=== PATIENT | male | born 1945 | race Caucasian/White ===

== ENCOUNTER → 2017-10-08 | Outpatient (CLI) | payer OTHER, MEDICARE ==
[~2017-10-08] MED LIST: AEC81 PO; AMLO5TAB2 PO; ASPI-555 PO; ATOR10 PO; ATOR10TA69 PO; BISO10TA PO; BISO5TAB2 PO; CLOP75TA14 PO; FLUT16H NS; GINK120C PO; GUAI200T5 PO; HYDR12.54 PO; LOSA100T29 PO; LOSA25TA21 PO; MELOTONIN PO; OMEG100014 PO; OMEP20CA10 PO; OXYB5TAB10 PO; PANT40TA25 PO; POTA-79 PO; TURM538C PO; UBID30CA11 PO; VITA1CAP PO
== END | disposition home or self-care (01) ==
LOC: RAH 10:00
PROVIDERS: ATTEND Internal Medicine Cardiovascular Disease
DX: I72.8 Aneurysm of other specified arteries (principal)
CPT/HCPCS: 76882

== ENCOUNTER 2017-10-23 05:30 | Observation (INO) | payer OTHER, MEDICARE ==
[2017-10-22 11:20] VITALS: BP 116/64
[2017-10-22 11:56] LABS: EOSINOPHILS % (AUTO) 3.4 % (0.0-8.0); HEMATOCRIT 39.9 % (42-54); MEAN CORPUSCULAR HEMOGLOBIN 30.4 pg (27.0-33.0); MEAN CORPUSCULAR HGB CONC 34.1 g/dL (32.0-36.0); MEAN CORPUSCULAR VOLUME 89.2 fL (79-99); MONOCYTES % (AUTO) 10.7 % (3.0-13.0); NEUTROPHILS % (AUTO) 70.9 % (40.0-77.0); PLATELET COUNT (AUTO) 265 K/uL (130-400); RED BLOOD CELL COUNT(AUTO) 4.47 MIL/uL (4.50-6.20); RED CELL DISTRIBUTION WIDTH 15.4 % (11.0-15.5)
[2017-10-22 11:57] LABS: BILIRUBIN,URINE Negative (NEGATIVE); GLUCOSE, URINE (UA) Negative (NEGATIVE); KETONES,URINE Negative (NEGATIVE); LEUKOCYTE ESTERASE ,URINE Negative (NEGATIVE); NITRATE,URINE Negative (NEGATIVE); OCCULT BLOOD,URINE Negative (NEGATIVE); PROTEIN,URINE Negative (NEGATIVE)
[2017-10-22 12:00] LABS: CREATININE 0.9 mg/dL (0.5-1.5)
[2017-10-22 12:02] LABS: INR 0.97 (0.85-1.15); PARTIAL THROMBOPLASTIN TIME 28.5 SEC (26.3-35.5); PROTHROMBIN TIME 10.2 SEC (9.6-11.6)
[2017-10-22 12:11] LABS: APPEARANCE,URINE CLEAR (CLEAR); COLOR,URINE YELLOW (YELLOW)
[2017-10-22 12:15] LABS: POTASSIUM 2.8 mmol/L (3.5-5.1)
[2017-10-23] VITALS (17 sets, daily range): BP systolic 118–142; BP diastolic 61–80
[~2017-10-23] VITALS: Ht 182.9 cm; Wt 79.6 kg
[~2017-10-23 05:30] MED LIST changes: -ASPI-555 PO; -ATOR10TA69 PO; -BISO10TA PO; -CLOP75TA14 PO; -FLUT16H NS; -GINK120C PO; -HYDR12.54 PO; -LOSA100T29 PO; -MELOTONIN PO; -OMEG100014 PO; -OXYB5TAB10 PO; -PANT40TA25 PO; +SODIUM CHLORIDE 0.9% 500ML 500 ML IV SCH; -TURM538C PO; -UBID30CA11 PO; -VITA1CAP PO
[2017-10-23] MEDS ORDERED: SODIUM CHLORIDE 0.9% 1000ML 1,000 ML IV ONE (06:57)
[2017-10-23] MEDS ORDERED: SODIUM CHLORIDE 0.9% IV SCH (07:30)
[2017-10-23] MEDS ORDERED: POTASSIUM CHLORIDE IV SCH (07:30)
[2017-10-23] MEDS ORDERED: MIDAZOLAM HCL 1 MG/ML 2ML VIAL ONE (08:14)
[2017-10-23] MEDS ORDERED: SODIUM BICARB 50MEQ 50ML VIAL ONE (12:09)
[2017-10-23] MEDS ORDERED: LIDOCAINE HCL 2% 20ML ONE (12:10)
[2017-10-23] MEDS ORDERED: IOPAMIDOL-370 75 ML VIAL IV ONE (12:10)
[2017-10-23] MEDS ORDERED: IOPAMIDOL-370 100 ML VIAL IV ONE (12:10)
[2017-10-23] MEDS ORDERED: HEPARIN SODIUM 1000UNIT/ML 10ML VIAL ONE (12:10)
[2017-10-23] MEDS ORDERED: PROPOFOL 10 MG/ML 20ML VIAL IV ONE (12:32)
[2017-10-23] MEDS ORDERED: LIDOCAINE HCL MPF 1% 5ML VIAL ONE (12:32)
[2017-10-23] MEDS ORDERED: FENTANYL CITRATE PF 50 MCG/1 ML 2ML VIAL ONE (12:54)
[2017-10-23] MEDS: SODIUM CHLORIDE 0.9% 1000ML 1,000 ML IV SCH (13:56)
[2017-10-23] MEDS ORDERED: ASPIRIN 325 MG TABLET PO SCH (14:00)
[2017-10-23] MEDS ORDERED: ONDANSETRON HCL 4 MG/2 ML VIAL IVP PRN (14:00)
[2017-10-23] MEDS ORDERED: POTASSIUM CHLORIDE 10% ELIXIR 20 MEQ/15 ML UDCUP PO PRN (14:00)
[2017-10-23] MEDS ORDERED: ACETAMINOPHEN 325 MG TAB PO PRN (14:00)
[2017-10-23] MEDS ORDERED: GUAIFENESIN SUGAR-FREE 100 MG/5 ML UDCUP PO PRN (14:00)
[2017-10-23] MEDS ORDERED: CLOP75TA14 PO (14:07)
[2017-10-23] MEDS ORDERED: PANT40TA25 PO (14:09)
[2017-10-23] MEDS ORDERED: CLOPIDOGREL BISULFATE 300 MG TAB ONE (14:13)
[2017-10-23] MEDS ORDERED: ASPIRIN 325MG EC TAB 325 MG TABLET.DR PO ONE (14:14)
[2017-10-23] MEDS: POTASSIUM CHLORIDE 20MEQ/100ML 100 ML IV PRN ×3 (14:56→22:32)
[2017-10-23] MEDS: LIDOCAINE HCL-MPF 1% 2ML VIAL IV PRN ×3 (14:56→22:31)
[2017-10-23] MEDS ORDERED: CLOPIDOGREL BISULFATE 300 MG TAB PO SCH (15:20)
[2017-10-23] MEDS: POTASSIUM CHLORIDE 20 MEQ ERTAB PO PRN ×3 (17:10→22:33)
[2017-10-23] MEDS ORDERED: ALPRAZOLAM 0.5 MG TABLET PO PRN (18:15)
[2017-10-23] MEDS: LOSARTAN 50 MG TABLET PO SCH (20:24)
[2017-10-23] MEDS ORDERED: ATORVASTATIN CALCIUM 10 MG TABLET PO SCH (21:00)
[2017-10-24] VITALS: BP 123/62
[2017-10-24] MEDS: POTASSIUM CHLORIDE 20 MEQ ERTAB PO PRN ×2 (00:07→02:08)
[2017-10-24] MEDS: SODIUM CHLORIDE 0.9% 1000ML 1,000 ML IV SCH (03:16)
[2017-10-24 03:57] LABS: HEMATOCRIT 37.9 % (42-54); MEAN CORPUSCULAR HEMOGLOBIN 30.3 pg (27.0-33.0); MEAN CORPUSCULAR HGB CONC 33.9 g/dL (32.0-36.0); MEAN CORPUSCULAR VOLUME 89.6 fL (79-99); PLATELET COUNT (AUTO) 212 K/uL (130-400); RED BLOOD CELL COUNT(AUTO) 4.23 MIL/uL (4.50-6.20); RED CELL DISTRIBUTION WIDTH 15.5 % (11.0-15.5); WHITE BLOOD COUNT (AUTO) 8.6 K/uL (4.8-10.8)
[2017-10-24 04:06] VITALS: BP 133/78
[2017-10-24 04:06] LABS: CREATININE 0.9 mg/dL (0.5-1.5); MAGNESIUM 1.8 mg/dL (1.80-2.40); POTASSIUM 3.2 mmol/L (3.5-5.1)
[2017-10-24] MEDS ORDERED: POTASSIUM CHLORIDE 20 MEQ ERTAB PO SCH (09:00)
[2017-10-24] MEDS ORDERED: CLOPIDOGREL BISULFATE 75 MG TAB PO SCH (09:00)
[2017-10-24] MEDS ORDERED: ASPIRIN 81 MG EC TAB PO SCH (09:00)
[2017-10-24] MEDS ORDERED: AMLODIPINE BESYLATE 5 MG TAB PO SCH (09:00)
[2017-10-24] MEDS ORDERED: BISOPROLOL FUMARATE 5 MG PO SCH (09:00)
[2017-10-24] MEDS ORDERED: PANTOPRAZOLE SODIUM 40 MG TABLET.DR PO SCH (09:00)
[2017-10-24] MEDS: LOSARTAN 50 MG TABLET PO SCH (09:09)
[2017-10-24 11:00] VITALS: BP 129/74
[2018-03-25] MEDS ORDERED: GINK120C PO (11:49)
[2018-03-25] MEDS ORDERED: TURM538C PO (11:53)
[2018-03-25] MEDS ORDERED: FLUT16H NS (11:53)
[2018-03-25] MEDS ORDERED: BISO10TA PO (11:53)
[2018-03-25] MEDS ORDERED: MELOTONIN PO (12:01)
[2018-03-25] MEDS ORDERED: HYDR12.54 PO (12:01)
[2018-03-25] MEDS ORDERED: OMEG100014 PO (12:01)
[2018-03-25] MEDS ORDERED: VITA1CAP PO (12:01)
[2018-03-25] MEDS ORDERED: LOSA100T29 PO (12:01)
[2018-03-25] MEDS ORDERED: OXYB5TAB10 PO (12:01)
[2018-03-25] MEDS ORDERED: UBID30CA11 PO (12:01)
[2018-03-25] MEDS ORDERED: ASPI-555 PO (12:01)
== END 2017-10-24 13:30 | disposition home or self-care (01) ==
LOC: DAH 05:30 → 2CH 05:31
PROVIDERS: ADMIT Internal Medicine Cardiovascular Disease; ATTEND Internal Medicine Cardiovascular Disease
DX: I25.119 Atherosclerotic heart disease of native coronary artery with unspecified angina pectoris (principal); I10 Essential (primary) hypertension; E78.5 Hyperlipidemia, unspecified; Z79.899 Other long term (current) drug therapy; Z79.82 Long term (current) use of aspirin; Z85.46 Personal history of malignant neoplasm of prostate; K21.9 Gastro-esophageal reflux disease without esophagitis
CPT/HCPCS: 36415 ×3; 71045; 80048 ×2; 81003; 83735; 84132 ×3; 85025; 85027; 85347 ×2; 85610; 85730; 93005 ×3; C1725; C1760; C1769; C1874 ×2; C1887 ×2; C1894; C9600 ×2; G0378 ×32; J1644; J2250; J3010; J3480 ×4; J3490 ×6; J7030; Q9967; J2704

== ENCOUNTER 2018-03-26 09:15 | Day surgery (SDC) | payer OTHER, MEDICARE ==
[~2018-03-26] VITALS: Ht 185.4 cm; Wt 81.4 kg
[~2018-03-26 09:15] MED LIST changes: -AMLO5TAB2 PO; +ASPI-555 PO; +BISO10TA PO; -BISO5TAB2 PO; +CLOP75TA14 PO; +FLUT16H NS; +GINK120C PO; -GUAI200T5 PO; +HYDR12.54 PO; +LOSA100T29 PO; -LOSA25TA21 PO; +MELOTONIN PO; +OMEG100014 PO; -OMEP20CA10 PO; +OXYB5TAB10 PO; +PANT40TA25 PO; -POTA-79 PO; +SODIUM CHLORIDE 0.9% 1000ML 1,000 ML IV ONE; -SODIUM CHLORIDE 0.9% 500ML 500 ML IV SCH; +TURM538C PO; +UBID30CA11 PO; +VITA1CAP PO
[2018-03-26 10:11] VITALS: BP 123/60
[2018-03-26] MEDS ORDERED: PROPOFOL 10 MG/ML 20ML VIAL IV ONE (10:48)
[2018-03-26] MEDS ORDERED: FENTANYL CITRATE PF 50 MCG/1 ML 2ML VIAL ONE (10:55)
[2018-03-26 11:06] VITALS: BP 103/52
[2018-03-26 11:16] VITALS: BP 110/61
[2018-03-26 11:21] VITALS: BP 123/67
[2018-03-26 11:26] VITALS: BP 117/70
== END 2018-03-26 12:08 | disposition home or self-care (01) ==
LOC: DAH 09:15
PROVIDERS: ATTEND Internal Medicine Gastroenterology
DX: D12.2 Benign neoplasm of ascending colon (principal); K57.30 Diverticulosis of large intestine without perforation or abscess without bleeding; K64.1 Second degree hemorrhoids; Z86.010 Personal history of colon polyps; E78.5 Hyperlipidemia, unspecified; I10 Essential (primary) hypertension; I25.10 Atherosclerotic heart disease of native coronary artery without angina pectoris; N40.0 Benign prostatic hyperplasia without lower urinary tract symptoms; Z85.46 Personal history of malignant neoplasm of prostate; F03.90 Unspecified dementia, unspecified severity, without behavioral disturbance, psychotic disturbance, mood disturbance, and anxiety; Z79.899 Other long term (current) drug therapy; Z98.890 Other specified postprocedural states; Z95.5 Presence of coronary angioplasty implant and graft
CPT/HCPCS: 45385; 88305; A4606; J2704; J3010; J7030

== ENCOUNTER → 2018-09-04 | Outpatient (CLI) | payer OTHER, MEDICARE ==
[~2018-09-04] MED LIST changes: +LOSA100T20 PO; -LOSA100T29 PO; -SODIUM CHLORIDE 0.9% 1000ML 1,000 ML IV ONE
== END | disposition home or self-care (01) ==
LOC: SLP 20:29
PROVIDERS: ATTEND Family Medicine
DX: G47.30 Sleep apnea, unspecified (principal)
CPT/HCPCS: 95810

== ENCOUNTER → 2018-09-25 | Outpatient (CLI) | payer OTHER, MEDICARE | END | disposition home or self-care (01) | LOC: SLP 20:20 | PROVIDERS: ATTEND Family Medicine | DX: G47.30 Sleep apnea, unspecified (principal) | CPT/HCPCS: 95811 ==

== ENCOUNTER → 2019-09-08 | Outpatient (CLI) | payer OTHER, MEDICARE ==
[~2019-09-08] MED LIST changes: -LOSA100T20 PO; +LOSA100T58 PO; -OXYB5TAB10 PO; +OXYB5TAB15 PO
== END | disposition home or self-care (01) ==
LOC: RAH 13:02
PROVIDERS: ATTEND Physical Medicine & Rehabilitation
DX: M54.2 Cervicalgia (principal)
CPT/HCPCS: 72052

== ENCOUNTER → 2020-05-09 | Outpatient (CLI) | payer OTHER, MEDICARE ==
[~2020-05-09] MED LIST changes: -ASPI-555 PO; +ASPI-556 PO
== END | disposition home or self-care (01) ==
LOC: SHCH 14:29
PROVIDERS: ATTEND Internal Medicine Cardiovascular Disease
DX: I35.0 Nonrheumatic aortic (valve) stenosis (principal); I35.1 Nonrheumatic aortic (valve) insufficiency; I11.9 Hypertensive heart disease without heart failure
CPT/HCPCS: 93306; 93356

== ENCOUNTER → 2020-05-17 | Outpatient (CLI) | payer OTHER, MEDICARE | END | disposition home or self-care (01) | LOC: SHCH 09:25 | PROVIDERS: ATTEND Internal Medicine Cardiovascular Disease | DX: I65.23 Occlusion and stenosis of bilateral carotid arteries (principal); I71.4 Abdominal aortic aneurysm, without rupture; I25.10 Atherosclerotic heart disease of native coronary artery without angina pectoris | CPT/HCPCS: 93880; 93978 ==

== ENCOUNTER → 2022-01-19 | Outpatient (CLI) | payer OTHER, MEDICARE ==
[~2022-01-19] MED LIST changes: -BISO10TA PO; +BISO10TA16 PO; -PANT40TA25 PO; +PANT40TA55 PO
== END | disposition home or self-care (01) ==
LOC: SHCH 08:50
PROVIDERS: ATTEND Internal Medicine Cardiovascular Disease
DX: I71.4 Abdominal aortic aneurysm, without rupture (principal); Z95.828 Presence of other vascular implants and grafts
CPT/HCPCS: 93978

== ENCOUNTER → 2022-02-16 | Outpatient (CLI) | payer OTHER, MEDICARE | END | disposition home or self-care (01) | LOC: SHCH 12:23 | PROVIDERS: ATTEND Internal Medicine Cardiovascular Disease | DX: I08.3 Combined rheumatic disorders of mitral, aortic and tricuspid valves (principal); R01.1 Cardiac murmur, unspecified | CPT/HCPCS: 93306 ==